=== PATIENT | female | born 1975 | race Caucasian/White ===

== ENCOUNTER → 2016-11-20 | Outpatient (CLI) | payer OTHER ==
[~2016-11-20] MED LIST: CRUT1EAC7 MC; ESTR0.5T3 PO; HYDR-2013 PO; LEVO100T11 PO
--- NOTE | 2016-11-21 09:42 | Diagnostic Imaging Report ---
INDICATION: Screening mammogram. COMPARISON: None, baseline. TECHNIQUE: Digital screening mammography was obtained with CAD. FINDINGS: Scattered fibroglandular densities are present. There is no mass or suspicious calcification. IMPRESSION: Stable screening mammogram. No malignancy. ACR BI-RADS Category 1: Negative. Result letter will be mailed to the patient. Note: At least 10% of breast cancer is not imaged by mammography. Dictated by: Dictated on workstation # [id number]
== END ==
LOC: RAD 07:45
PROVIDERS: ATTEND Family Medicine
DX: Z12.31 Encounter for screening mammogram for malignant neoplasm of breast (principal)